=== PATIENT | female | born 2005 | race American Indian/Alaskan Native ===

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

== ENCOUNTER 2024-10-23 10:34 | Emergency (ER) | payer OTHER ==
[~2024-10-23] VITALS: Ht 170.2 cm; Wt 111.5 kg
[~2024-10-23 10:34] MED LIST changes: +SYNTHROID150 MCG PO; +ZOLOFT100 MG
[2024-10-23] MEDS ORDERED: LEVOTHYROXINE200 MCG PO (10:47)
[2024-10-23] MEDS ORDERED: LISINOPRIL10 MG PO (10:47)
[2024-10-23] MEDS ORDERED: SERTRALINE HCL100 MG PO (10:48)
[2024-10-23] MEDS ORDERED: TRAMADOL HCL50 MG PO (12:44)
[2024-10-23 12:58] VITALS: BP 111/69
== END 2024-10-23 12:58 | disposition home or self-care (01) ==
LOC: ED 10:34
DX: S93.402A Sprain of unspecified ligament of left ankle, initial encounter (principal); I10 Essential (primary) hypertension; X50.1XXA Overexertion from prolonged static or awkward postures, initial encounter; Z91.041 Radiographic dye allergy status; Z79.890 Hormone replacement therapy; Z79.899 Other long term (current) drug therapy
CPT/HCPCS: 73610; 99283